=== PATIENT | female | born 1975 | race Caucasian/White ===

== ENCOUNTER 2018-12-30 11:38 | Emergency (ER) | payer SELFPAY ==
[2018-12-30] MEDS ORDERED: Sodium Chloride 0.9% 1000 ML 1,000 ML IV STA (12:10)
[2018-12-30] MEDS ORDERED: Pepcid 20 MG VIAL IV ONE ×2 (12:10→12:17)
[2018-12-30] MEDS ORDERED: Sodium Chloride 0.9% 1000 ML 1,000 ML ONE (12:17)
--- NOTE | 2018-12-30 12:17 | ERPHSYRPT ---
- History of Present Illness Time Seen by Provider: 12/30/18 12:00 Historian: patient Exam Limitations: no limitations Patient Subjective Stated Complaint: pt here for right sided abd pain, with constipation, no fever, no nausea or vomiting, pain constant for over a week now , no dc but has fowl oder from vaginal area Triage Nursing Assessment: pt alert. walked in,skin w/d/p. resp easy. abd soft, mo edema, moves all ext well Physician History: Patient has a history of PCOS and gastroparesis of unknown etiology who comes in with 2 months of abdominal pain that is cramping and generalized with intermittent stabbing, worse over the past 7 days. No evaluation or treatment prior to coming into the emergency department. Timing/Duration: week(s) (8, intermittent abdominal pain generalized, cramping and stabbing), worse (in the upper abdomen one week ago with cramping, progressively worsening) Activities at Onset: none Quality: cramping (more generalized), stabbing (RLQ) Abdominal Pain Onset Location: RLQ, generalized abdomen Pain Radiation: RUQ, LUQ, epigastric Severity of Pain-Max: severe Severity of Pain-Current: severe Modifying Factors: Improves With: nothing Associated Symptoms: nausea, other (constipatyion), No back, No chest pain, No diaphoresis, No diarrhea, No fever/chills, No fatigue, No headache, No heartburn , No loss of appetite, No neck pain, No rash, No shortness of breath, No syncope , No vomiting, No weakness Previous symptoms: same symptoms as today (no etiology given, the RLQ pain feels like past PCOS pain; also had endometriosis), no recent treatment Allergies/Adverse Reactions: Penicillins Allergy (Verified 12/30/18 12:09) Home Medications: Alprazolam [Xanax] 0.5 mg DAILY 12/30/18 [History] Levothyroxine Sodium 100 Mcg [Synthroid 100 Mcg] 100 mcg DAILY 12/30/18 [ History] Zolpidem Tartrate 10 mg [Ambien 10 MG] 10 mg DAILY 12/30/18 [History] Hx Tetanus, Diphtheria Vaccination/Date Given: No Hx Influenza Vaccination/Date Given: No Hx Pneumococcal Vaccination/Date Given: No Immunizations Up to Date: Yes - Review of Systems Constitutional: No Fever, No Chills, No Fatigue Eyes: No Eye Pain, No Vision Changes Ears, Nose, & Throat: No Mouth Swelling, No Throat Swelling, No Painful Swallowing Respiratory: No Cough, No Dyspnea Cardiac: No Chest Pain, No Palpitations, No Syncope Abdominal/Gastrointestinal: Abdominal Pain, Constipation, No Nausea, No Vomiting , No Diarrhea, No Hematemesis, No Hematochezia, No Melena Genitourinary Symptoms: Other (positive odor, no discharge), No Dysuria, No Frequency, No Hematuria, No Flank Pain, No Vaginal Bleeding, No Vaginal Discharge, No Vaginal Itching Musculoskeletal: No Arthralgias, No Back Pain, No Neck Pain, No Joint Swelling, No Myalgias Skin: No Pruritis, No Rash Neurological: No Dizziness, No Focal Weakness, No Headache, No Parasthesia, No Sensory Changes Psychological: No Anxiety, No Emotional Lability Endocrine: No Polyuria, No Excessive Sweating Hematologic/Lymphatic: No Easy Bleeding, No Easy Bruising All Other Systems: Reviewed and Negative - Past Medical History Pertinent Past Medical History: Yes Other Medical History: poly cystic disease - Past Surgical History Past Surgical History: Yes Gastrointestinal: Cholecystectomy, Exploratory Laparoscopy - Social History Smoking Status: Never smoker Exposure to second hand smoke: No Drug Use: none Patient Lives Alone: No - Female History Hx Last Menstrual Period: 2 days ago Hx Now: No - Nursing Vital Signs Nursing Vital Signs: Initial Vital Signs Temperature 97.9 F 12/30/18 11:49 Pulse Rate 80 12/30/18 11:49 Respiratory Rate 16 12/30/18 11:49 Blood Pressure 177/97 12/30/18 11:49 O2 Sat by Pulse Oximetry 97 12/30/18 11:49 Pain Scale Pain Intensity 8 - Physical Exam General Appearance: no apparent distress, alert Eye Exam: PERRL/EOMI, eyes nml inspection, No scleral icterus Ears, Nose, Throat Exam: normal ENT inspection, TMs normal, pharynx normal, moist mucous membranes, No TM abnormal (R), No TM abnormal (L), No pharyngeal erythema, No tonsillar exudate Neck Exam: normal inspection, non-tender, supple, full range of motion, No meningismus, No Brudzinski, No lymphadenopathy Respiratory Exam: normal breath sounds, lungs clear, airway intact, No chest tenderness, No respiratory distress, No diminished breath sounds, No accessory muscle use, No prolonged expirations, No crackles/rales, No rhonchi, No wheezing , No stridor Cardiovascular Exam: regular rate/rhythm, normal heart sounds, normal peripheral pulses, capillary refill <2 sec Gastrointestinal/Abdomen Exam: soft, normal bowel sounds, No tenderness, No distention, No mass, No guarding, No pulsatile mass, No rebound Pelvic Exam: normal external exam, other (chaperoned by Tammy Chery RN), No adnexal tenderness, No adnexal mass, No cervical motion tenderness, No vaginal bleeding, No uterine tenderness, No vaginal discharge Rectal Exam: normal rectal tone, No hemorrhoids, No blood Back Exam: normal inspection, normal range of motion, No CVA tenderness, No vertebral tenderness, No rash, No point tenderness Extremity Exam: normal inspection, normal range of motion, No calf tenderness, No inflammation, No pedal edema, No swelling Neurologic Exam: alert, oriented x 3, cooperative, 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 Previous cholecystectomy. Remaining solid organs and osseous structure are unremarkable. Chest demonstrates heart, lungs, and bony thorax. Impression: Negative abdomen with incidental findings. Normal 1 view chest) - Radiology Ultrasound Exam Pelvis Ultrasound: negative, No Torsion/Nml Flow, Other (normal pelvic ultrasound) Ordered Tests: Active Orders 24 hr Category Date Time Status IV Insertion STAT Care 12/30/18 12:10 Active Pelvic Exam Assist STAT Care 12/30/18 12:17 Active OBSTR/ACUTE ABDOMEN SERIES Stat Exams 12/30/18 12:37 Completed PELVIC [US] Stat Exams 12/30/18 14:28 Taken AMYLASE Stat Lab 12/30/18 12:22 Completed CBC W DIFF Stat Lab 12/30/18 12:22 Completed CMP Stat Lab 12/30/18 12:22 Completed HCG,QUALITATIVE URINE Stat Lab 12/30/18 12:14 Completed LIPASE Stat Lab 12/30/18 12:22 Completed Lactic Acid Stat Lab 12/30/18 12:25 Completed Manual Differential NC Stat Lab 12/30/18 12:22 Completed TROPONIN Q3H Lab 12/30/18 12:22 Completed TROPONIN Q3H Lab 12/31/18 00:15 Ordered UA W/RFX UR CULTURE Stat Lab 12/30/18 12:14 Completed Wet Prep Stat Lab 12/30/18 12:18 Completed Medication Summary Discontinued Medications Generic Name Dose Route Start Last Admin Trade Name Freq PRN Reason Stop Dose Admin Famotidine 20 mg 12/30/18 12:10 12/30/18 12:19 Pepcid 20 Mg Vial IV 12/30/18 12:11 20 mg STAT ONE Administration Famotidine Confirm 12/30/18 12:17 Pepcid 20 Mg Vial Administered 12/30/18 12:18 Dose 20 mg IV .STK-MED ONE Sodium Chloride 1,000 mls @ 999 mls/hr 12/30/18 12:10 12/30/18 14:47 Sodium Chloride 0.9% 1000 Ml IV 12/30/18 13:10 Infused .Q1H1M STA Infusion Sodium Chloride Confirm 12/30/18 12:17 Sodium Chloride 0.9% 1000 Ml Administered 12/30/18 12:18 Dose 1,000 mls @ ud .ROUTE .STK-MED ONE Ketorolac Tromethamine 30 mg 12/30/18 12:36 12/30/18 12:39 Toradol 30 Mg Injection IV 12/30/18 12:37 30 mg STAT ONE Administration Ketorolac Tromethamine Confirm 12/30/18 12:38 Toradol 30 Mg Injection Administered 12/30/18 12:39 Dose 30 mg .ROUTE .STK-MED ONE Lab/Rad Data: Laboratory Result Diagrams 12/30/18 12:22 12/30/18 12:22 Laboratory Results 12/30/18 12/30/18 12/30/18 Range/Units 12:25 12:22 12:22 WBC (4.0-10.5) K/mm3 RBC (4.1-5.4) M/mm3 Hgb (12.0-16.0) gm/dl Hct (35-47) % MCV (78-100) fl MCH (26-32) pg MCHC (32-36) g/dl RDW (11.5-14.0) % Plt Count (150-450) K/mm3 MPV (6-9.5) fl Sodium 139 (137-145) mmol/L Potassium 4.1 (3.5-5.1) mmol/L Chloride 104 (98-107) mmol/L Carbon Dioxide 26 (22-30) mmol/L Anion Gap 13.6 (5-15) MEQ/L BUN 15 (7-17) mg/dL Creatinine 0.74 (0.52-1.04) mg/dL Estimated GFR > 60.0 ML/MIN Glucose 88 (74-106) mg/dL Lactic Acid 1.5 (0.4-2.0) Calcium 9.2 (8.4-10.2) mg/dL Total Bilirubin 0.70 (0.2-1.3) mg/dL AST 26 (14-36) U/L ALT 18 (0-35) U/L Alkaline Phosphatase 56 (38-126) U/L Troponin I < 0.012 (0.000-0.034) ng/mL Serum Total Protein 7.5 (6.3-8.2) g/dL Albumin 4.2 (3.5-5.0) g/dL Amylase 64 (30-110) U/L Lipase 58 (23-300) U/L Urine Color (YELLOW) Urine Appearance (CLEAR) Urine pH (5-6) Ur Specific [place] (1.005-1.025) Urine Protein (Negative) Urine Ketones (NEGATIVE) Urine Blood (0-5) Edward/ul Urine Nitrite (NEGATIVE) Urine Bilirubin (NEGATIVE) Urine Urobilinogen (0-1) mg/dL Ur Leukocyte Esterase (NEGATIVE) Urine WBC (Auto) (0-5) /HPF Urine RBC (Auto) (0-2) /HPF U Epithel Cells (Auto) (FEW) /HPF Urine Bacteria (Auto) (NEGATIVE) /HPF Urine Culture Reflexed (NO) Urine Glucose (NEGATIVE) mg/dL Urine HCG, Qual (Negative) WBC (Wet Prep) RBC (Wet Prep) Epi Cells (Wet Prep) Bacteria (Wet Prep) Clue Cells (Wet Prep) Trichomonas (Wet Prep) Budding Yeast (Wet Prp) 10/12/30/18 12/30/18 Range/Units 12:22 12:18 12:14 WBC 6.9 (4.0-10.5) K/mm3 RBC 4.40 (4.1-5.4) M/mm3 Hgb 13.8 (12.0-16.0) gm/dl Hct 40.3 (35-47) % MCV 91.6 (78-100) fl MCH 31.4 (26-32) pg MCHC 34.2 (32-36) g/dl RDW 12.7 (11.5-14.0) % Plt Count 232 (150-450) K/mm3 MPV 9.1 (6-9.5) fl Sodium (137-145) mmol/L Potassium (3.5-5.1) mmol/L Chloride (98-107) mmol/L Carbon Dioxide (22-30) mmol/L Anion Gap (5-15) MEQ/L BUN (7-17) mg/dL Creatinine (0.52-1.04) mg/dL Estimated GFR ML/MIN Glucose (74-106) mg/dL Lactic Acid (0.4-2.0) Calcium (8.4-10.2) mg/dL Total Bilirubin (0.2-1.3) mg/dL AST (14-36) U/L ALT (0-35) U/L Alkaline Phosphatase (38-126) U/L Troponin I (0.000-0.034) ng/mL Serum Total Protein (6.3-8.2) g/dL Albumin (3.5-5.0) g/dL Amylase (30-110) U/L Lipase (23-300) U/L Urine Color (YELLOW) Urine Appearance (CLEAR) Urine pH (5-6) Ur Specific [place] (1.005-1.025) Urine Protein (Negative) Urine Ketones (NEGATIVE) Urine Blood (0-5) Edward/ul Urine Nitrite (NEGATIVE) Urine Bilirubin (NEGATIVE) Urine Urobilinogen (0-1) mg/dL Ur Leukocyte Esterase (NEGATIVE) Urine WBC (Auto) (0-5) /HPF Urine RBC (Auto) (0-2) /HPF U Epithel Cells (Auto) (FEW) /HPF Urine Bacteria (Auto) (NEGATIVE) /HPF Urine Culture Reflexed (NO) Urine Glucose (NEGATIVE) mg/dL Urine HCG, Qual NEGATIVE (Negative) WBC (Wet Prep) None Seen RBC (Wet Prep) None Seen Epi Cells (Wet Prep) Few Bacteria (Wet Prep) Moderate Clue Cells (Wet Prep) None Seen Trichomonas (Wet Prep) None Seen Budding Yeast (Wet Prp) None Seen 12/30/18 Range/Units 12:14 WBC (4.0-10.5) K/mm3 RBC (4.1-5.4) M/mm3 Hgb (12.0-16.0) gm/dl Hct (35-47) % MCV (78-100) fl MCH (26-32) pg MCHC (32-36) g/dl RDW (11.5-14.0) % Plt Count (150-450) K/mm3 MPV (6-9.5) fl Sodium (137-145) mmol/L Potassium (3.5-5.1) mmol/L Chloride (98-107) mmol/L Carbon Dioxide (22-30) mmol/L Anion Gap (5-15) MEQ/L BUN (7-17) mg/dL Creatinine (0.52-1.04) mg/dL Estimated GFR ML/MIN Glucose (74-106) mg/dL Lactic Acid (0.4-2.0) Calcium (8.4-10.2) mg/dL Total Bilirubin (0.2-1.3) mg/dL AST (14-36) U/L ALT (0-35) U/L Alkaline Phosphatase (38-126) U/L Troponin I (0.000-0.034) ng/mL Serum Total Protein (6.3-8.2) g/dL Albumin (3.5-5.0) g/dL Amylase (30-110) U/L Lipase (23-300) U/L Urine Color STRAW (YELLOW) Urine Appearance CLEAR (CLEAR) Urine pH 7.0 (5-6) Ur Specific [place] 1.008 (1.005-1.025) Urine Protein NEGATIVE (Negative) Urine Ketones NEGATIVE (NEGATIVE) Urine Blood NEGATIVE (0-5) Edward/ul Urine Nitrite NEGATIVE (NEGATIVE) Urine Bilirubin NEGATIVE (NEGATIVE) Urine Urobilinogen NEGATIVE (0-1) mg/dL Ur Leukocyte Esterase NEGATIVE (NEGATIVE) Urine WBC (Auto) NONE (0-5) /HPF Urine RBC (Auto) NONE (0-2) /HPF U Epithel Cells (Auto) NONE (FEW) /HPF Urine Bacteria (Auto) NONE (NEGATIVE) /HPF Urine Culture Reflexed NO (NO) Urine Glucose NEGATIVE (NEGATIVE) mg/dL Urine HCG, Qual (Negative) WBC (Wet Prep) RBC (Wet Prep) Epi Cells (Wet Prep) Bacteria (Wet Prep) Clue Cells (Wet Prep) Trichomonas (Wet Prep) Budding Yeast (Wet Prp) - Progress Progress: improved Progress Note: 12/30/18 14:29 Patient's pain has improved with the IV Toradol. Pelvic ultrasound will be performed to continue evaluation of her abdominal discomfort. 12/30/18 15:24 Patient feeling better. No abdominal pain. Counseled pt/family regarding: lab results, diagnosis, need for follow-up, rad results - Departure Departure Disposition: Home Clinical Impression: Generalized abdominal cramping, Elevated blood pressure reading without diagnosis of hypertension Constipation Qualifiers: Constipation type: unspecified constipation type Qualified Code(s): K59.00 - Constipation, unspecified Condition: Good Critical Care Time: No Referrals: DOCTOR,NO FAMILY [Primary Care Provider] - ZECHARIAH LEZAMA [ACTIVE STAFF] - 12/31/18 Instructions: Acute Abdomen (Belly Pain), Adult (DC), Constipation, Adult (DC) , DASH Diet Additional Instructions: Return immediately to the emergency department if any worse pain, new nausea and vomiting, new fever, new chest pain, new shortness of breath or any other concerning signs of symptoms that were not present at today's emergency department visit for immediate re-evaluation in the emergency department. Forms: Work/School Release Form Prescriptions: Polyethylene Glycol 3350 17 gm [Miralax Powder 17GM PACKET] 17 gm PO DAILY PRN #7 packet PRN Reason: Constipation
[2018-12-30] MEDS ORDERED: TORAdol 30 mg Injection IV ONE (12:36)
[2018-12-30] MEDS ORDERED: TORAdol 30 mg Injection ONE (12:38)
[2018-12-30 12:42] LABS: ALBUMIN 4.2 g/dL (3.5-5.0); ALKALINE PHOSPHATASE 56 U/L (38-126); AMYLASE 64 U/L (30-110); ANION GAP 13.6 MEQ/L (5-15); BLOOD UREA NITROGEN 15 mg/dL (7-17); CHLORIDE 104 mmol/L (98-107); Calcium 9.2 mg/dL (8.4-10.2); Carbon Dioxide 26 mmol/L (22-30); Creatinine 1 0.74 mg/dL (0.52-1.04); Glucose 88 mg/dL (74-106); LIPASE 58 U/L (23-300); Potassium 4.1 mmol/L (3.5-5.1); SGOT/AST 26 U/L (14-36); SGPT/ALT 18 U/L (0-35); SODIUM 139 mmol/L (137-145); Total Protein 7.5 g/dL (6.3-8.2)
[2018-12-30 12:47] LABS: Hematocrit 40.3 % (35-47); Hemoglobin 13.8 gm/dl (12.0-16.0); Mean Cell Volume 91.6 fl (78-100); Mean Corpuscular Hemoglobin 31.4 pg (26-32); Mean Corpuscular Hgb Concent. 34.2 g/dl (32-36); Mean Platelet Volume 9.1 fl (6-9.5); Platelet Count 232 K/mm3 (150-450); Red Cell Distribution Width 12.7 % (11.5-14.0); White Blood Count 6.9 K/mm3 (4.0-10.5)
[2018-12-30 12:48] LABS: Appearance CLEAR (CLEAR); Bilirubin NEGATIVE (NEGATIVE); Blood NEGATIVE Ery/ul (0-5); Glucose NEGATIVE (NEGATIVE); Ketones NEGATIVE (NEGATIVE); Leukocyte Esterase NEGATIVE (NEGATIVE); Nitrite NEGATIVE (NEGATIVE); Protein,Urine Dip NEGATIVE (Negative); Specific Gravity 1.008 (1.005-1.025); Urobilinogen NEGATIVE mg/dL (0-1)
--- NOTE | 2018-12-30 13:37 | XRAY ---
Indication: Right abdomen pain 2-3 months. Comparison: None 2 views of the abdomen nonacute and nonobstructed with mild fecal debris predominantly in the ascending colon. Previous cholecystectomy. Remaining solid organs and osseous structures are unremarkable. Single PA chest demonstrates normal heart, lungs, and bony thorax. Impression: Negative abdomen with incidental findings. Normal 1 view chest.
[2018-12-30 14:36] LABS: Clue Cells None Seen
[2018-12-30 14:37] LABS: Bacteria Moderate; Red Blood Cells None Seen; Trichomonas None Seen; White Blood Cells None Seen; Yeast None Seen
[2018-12-30 15:21] VITALS: O2SAT 97
--- NOTE | 2018-12-30 15:31 | XRAY ---
Indication: Pelvic pain. History of polycystic ovary syndrome. Two-dimensional transabdominal pelvic sonogram performed. Comparison: None Uterus anteverted measuring 11.6 x 3.8 x 6.2 cm. Myometrium homogeneous. Endometrial stripe measures 9.5 mm. No endometrial cavity mass or fluid collection. Right ovary measures 3.6 x 2.5 x 3.9 cm and the left measures 2.9 x 2.0 x 3.0 cm. Normal perfusion and follicular cysts bilaterally. Largest cyst measures 2.2 cm on the right. No suspicious adnexal mass or free fluid. Impression: Negative transabdominal pelvic sonogram.
[2018-12-30 15:42] VITALS: BP 170/86; PULSE 65
[2018-12-30 15:45] LABS: Lymphocytes 28 % (24-44); Monocyte 5 % (0.0-12.0); Neutrophils 67 % (36.0-66.0); Platelet Estimate NORMAL (NORMAL); Total Cells Counted 100
[2018-12-30 15:49] LABS: CHLAMYDIA DNA NEGATIVE; N GONORRHOEAE DNA NEGATIVE
[2018-12-30 15:58] LABS: Absolute Neutrophil Ct (ANC) 4.63 (1.4-6.9)
== END 2018-12-30 15:40 | disposition home or self-care (01) ==
LOC: ED 11:38
DX: R10.84 Generalized abdominal pain (principal); R03.0 Elevated blood-pressure reading, without diagnosis of hypertension; K59.00 Constipation, unspecified; N83.201 Unspecified ovarian cyst, right side
CPT/HCPCS: 36415; 74022; 76856; 80053; 81001; 82150; 83605; 83690; 84484; 84703; 85025; 87210; 87490; 87590; 96360; 96374; 96375; 99284; J1885